=== PATIENT | male | born 1930 | race Asian ===

== ENCOUNTER 2019-07-17 11:15 | Inpatient (IN) | payer OTHER, MEDICAID ==
[~2019-07-17] VITALS: Ht 162.6 cm; Wt 59.4 kg
[2019-07-17 11:19] VITALS: BP_SYST 84
[2019-07-17] MEDS ORDERED: NACL 0.9% 1,000 ML IV ONE (11:21)
[2019-07-17] MEDS ORDERED: NS 1000 ML IV.SOLN IV ONE (11:30)
[2019-07-17] MEDS ORDERED: ONDANSETRON HCL 4 MG/2 ML VIAL IVP ONE (11:30)
[2019-07-17 11:55] LABS: BASOPHILS % (AUTO) 0.1 % (0.0-2.0); EOSINOPHILS % (AUTO) 0.1 % (0.0-4.0); HEMATOCRIT 40.6 % (36-54); HEMOGLOBIN 13.3 g/dL (14.0-18.0); LYMPHOCYTES # (AUTO) 0.6 K/uL (1.0-5.5); LYMPHOCYTES % (AUTO) 2.2 % (20.5-51.5); MEAN CORPUSCULAR HEMOGLOBIN 29 pg (27-31); MEAN CORPUSCULAR HGB CONC 33 % (32-36); MEAN CORPUSCULAR VOLUME 89 fL (79.0-98.0); MONOCYTES # (AUTO) 0.9 K/uL (0.0-1.0); MONOCYTES % (AUTO) 3.3 % (1.7-9.3); NEUTROPHILS # (AUTO) 24.8 K/uL (1.8-7.7); NEUTROPHILS % (AUTO) 94.3 % (40.0-70.0); PLATELET COUNT (AUTO) 126 K/uL (130-430); RED BLOOD CELL COUNT(AUTO) 4.55 MIL/uL (4.2-6.2); RED CELL DISTRIBUTION WIDTH 14.6 % (9.0-15.0); WHITE BLOOD COUNT (AUTO) 26.3 K/uL (4.8-10.8)
[2019-07-17 12:05] LABS: ANION GAP 8 (5-15); CALCIUM 7.9 mg/dL (8.4-11.0); CHLORIDE 107 mmol/L (98-107); CREATININE 1.47 mg/dL (0.55-1.30); GLUCOSE 146 mg/dL (70-99); POTASSIUM 3.3 mmol/L (3.5-5.1); SODIUM SERUM 142 mmol/L (136-145); UREA NITROGEN, BLOOD 30 mg/dL (8-21)
[2019-07-17 12:08] LABS: PROTHROMBIN TIME 10.5 SECS (9.5-12.5)
[2019-07-17 12:11] LABS: ALANINE AMINOTRANSFERASE 53 U/L (12-78); ALBUMIN 2.5 g/dL (3.4-4.8); ASPARTATE AMINOTRANSFERASE 69 U/L (10-37); LIPASE 33 U/L (73-393); TOTAL BILIRUBIN 0.5 mg/dL (0.0-1.0)
[2019-07-17] MEDS ORDERED: ASPIRIN 81 MG TAB.CHEW PO ONE (12:15)
[2019-07-17] MEDS ORDERED: ASPIRIN 81 MG TAB.CHEW ONE (12:32)
[2019-07-17 12:36] LABS: CKMB RELATIVE INDEX 0.5 (0.0-2.9); CREATINE KINASE MB 2.3 ng/mL (0-3.6)
[2019-07-17] MEDS ORDERED: cefTRIAXone 1 GM IVPB PREMIX 50 ML IV ONE (14:00)
[2019-07-17 14:34] LABS: BILIRUBIN,URINE NEGATIVE (NEGATIVE); BLOOD, URINE 2+ (NEGATIVE); CLARITY/URINE CLEAR (CLEAR); COLOR,URINE YELLOW (YELLOW); GLUCOSE,URINE NEGATIVE (NEGATIVE); KETONES,URINE NEGATIVE (NEGATIVE); LEUKOCYTE ESTERASE ,URINE NEGATIVE (NEGATIVE); NITRITE, URINE NEGATIVE (NEGATIVE); PROTEIN URINE NEGATIVE (NEGATIVE); UROBILINOGEN,URINE 0.2 (0.2-1.0)
[2019-07-17 14:57] LABS: BACTERIA,URINE RARE /HPF (None Seen); MUCUS,URINE 1+ /LPF (None Seen); WBC,URINE 0-3 /HPF (0-3)
[2019-07-17] MEDS ORDERED: NACL 0.9% 1,000 ML IV SCH (15:00)
[2019-07-17] MEDS ORDERED: LISI-209 PO (15:04)
[2019-07-17] MEDS ORDERED: MEMA5TAB PO (15:04)
[2019-07-17] MEDS ORDERED: METO25TA6 PO (15:04)
[2019-07-17] MEDS ORDERED: MULT-1117 PO (15:04)
[2019-07-17] MEDS ORDERED: ATOR40TA68 PO (15:04)
[2019-07-17] MEDS ORDERED: MIRT15TA2 PO (15:04)
[2019-07-17] MEDS ORDERED: ACET-2165 PO (15:04)
[2019-07-17] MEDS ORDERED: PRO40 PO (15:04)
[2019-07-17] MEDS ORDERED: RIVA15TA GT (15:04)
[2019-07-17] MEDS ORDERED: CHOL20004 PO (15:04)
[2019-07-17] MEDS ORDERED: DOCU-144 PO (15:04)
[2019-07-17 16:35] VITALS: BP_SYST 93
[2019-07-17] MEDS: PIPERACILLIN/TAZO 3.375 GM in NS 50 ML IV SCH (18:20)
[2019-07-17 20:00] VITALS: BP_SYST 95
[2019-07-17] MEDS: ATORVASTATIN 20 MG TABLET PO SCH (21:00)
[2019-07-17] MEDS: DOCUSATE SODIUM 100 MG CAPSULE PO SCH (21:00)
[2019-07-17 23:26] VITALS: BP_SYST 88
[2019-07-17] MEDS ORDERED: KCL 20 mEq in NS 1000 mL 1,000 ML IV ONE (23:58)
[2019-07-18] VITALS (7 sets, daily range): BP systolic 109–136
[2019-07-18] MEDS: KCL 20 mEq in NS 1000 mL 1,000 ML IV SCH ×4 (00:19→21:16)
[2019-07-18] MEDS: PIPERACILLIN/TAZO 3.375 GM in NS 50 ML IV SCH ×4 (00:20→23:56)
[2019-07-18 05:46] LABS: ANION GAP 8 (5-15); CALCIUM 7.1 mg/dL (8.4-11.0); CHLORIDE 112 mmol/L (98-107); CREATININE 1.08 mg/dL (0.55-1.30); GLUCOSE 82 mg/dL (70-99); POTASSIUM 4.1 mmol/L (3.5-5.1); SODIUM SERUM 144 mmol/L (136-145); UREA NITROGEN, BLOOD 31 mg/dL (8-21)
[2019-07-18 06:26] LABS: BASOPHILS % (AUTO) 0.1 % (0.0-2.0); EOSINOPHILS % (AUTO) 0.2 % (0.0-4.0); HEMATOCRIT 36.5 % (36-54); HEMOGLOBIN 11.8 g/dL (14.0-18.0); LYMPHOCYTES # (AUTO) 0.5 K/uL (1.0-5.5); LYMPHOCYTES % (AUTO) 2.4 % (20.5-51.5); MEAN CORPUSCULAR HEMOGLOBIN 29 pg (27-31); MEAN CORPUSCULAR HGB CONC 32 % (32-36); MEAN CORPUSCULAR VOLUME 90 fL (79.0-98.0); MONOCYTES # (AUTO) 0.7 K/uL (0.0-1.0); MONOCYTES % (AUTO) 3.4 % (1.7-9.3); NEUTROPHILS # (AUTO) 18.7 K/uL (1.8-7.7); NEUTROPHILS % (AUTO) 93.9 % (40.0-70.0); PLATELET COUNT (AUTO) 107 K/uL (130-430); RED BLOOD CELL COUNT(AUTO) 4.08 MIL/uL (4.2-6.2); RED CELL DISTRIBUTION WIDTH 14.3 % (9.0-15.0); WHITE BLOOD COUNT (AUTO) 19.9 K/uL (4.8-10.8)
[2019-07-18] MEDS: PANTOPRAZOLE SODIUM 40 MG TAB PO SCH (06:32)
[2019-07-18] MEDS: MULTIVITAMINS TAB 1 TABLET PO SCH (08:02)
[2019-07-18] MEDS: METOPROLOL TARTRATE 25 MG TABLET PO SCH ×2 (08:02→21:00)
[2019-07-18] MEDS: MEMANTINE HCL 5 MG TABLET PO SCH ×2 (08:02→21:00)
[2019-07-18] MEDS: LISINOPRIL 5 MG TABLET PO SCH (08:03)
[2019-07-18] MEDS ORDERED: ACETAMINOPHEN 325 MG TABLET PO SCH (10:00)
[2019-07-18] MEDS ORDERED: DIATR MEGLU/DIATRIZ SOD 30 ML SOLUTION PO ONE (12:06)
[2019-07-18] MEDS: DOCUSATE SODIUM 100 MG CAPSULE PO SCH (21:00)
[2019-07-18] MEDS: ATORVASTATIN 20 MG TABLET PO SCH (21:00)
[2019-07-19] MEDS: PIPERACILLIN/TAZO 3.375 GM in NS 50 ML IV SCH ×3 (06:18→23:44)
[2019-07-19] MEDS: PANTOPRAZOLE SODIUM 40 MG TAB PO SCH (06:18)
[2019-07-19] MEDS: KCL 20 mEq in NS 1000 mL 1,000 ML IV SCH ×2 (06:21→15:03)
[2019-07-19 06:30] LABS: ALANINE AMINOTRANSFERASE 37 U/L (12-78); ANION GAP 12 (5-15); ASPARTATE AMINOTRANSFERASE 50 U/L (10-37); CALCIUM 8.1 mg/dL (8.4-11.0); CHLORIDE 114 mmol/L (98-107); GLUCOSE 60 mg/dL (70-99); POTASSIUM 4.7 mmol/L (3.5-5.1); SODIUM SERUM 145 mmol/L (136-145); TOTAL BILIRUBIN 0.5 mg/dL (0.0-1.0); UREA NITROGEN, BLOOD 33 mg/dL (8-21)
[2019-07-19 06:48] LABS: BASOPHILS # (AUTO) 0.1 K/uL (0.0-0.2); BASOPHILS % (AUTO) 0.3 % (0.0-2.0); EOSINOPHILS # (AUTO) 0.3 K/uL (0.0-0.4); EOSINOPHILS % (AUTO) 1.4 % (0.0-4.0); HEMATOCRIT 40.8 % (36-54); HEMOGLOBIN 13.3 g/dL (14.0-18.0); LYMPHOCYTES # (AUTO) 1.1 K/uL (1.0-5.5); MEAN CORPUSCULAR HEMOGLOBIN 30 pg (27-31); MEAN CORPUSCULAR HGB CONC 33 % (32-36); MEAN CORPUSCULAR VOLUME 91 fL (79.0-98.0); MONOCYTES % (AUTO) 4.5 % (1.7-9.3); NEUTROPHILS # (AUTO) 19.5 K/uL (1.8-7.7); NEUTROPHILS % (AUTO) 88.8 % (40.0-70.0); PLATELET COUNT (AUTO) 123 K/uL (130-430); RED CELL DISTRIBUTION WIDTH 14.8 % (9.0-15.0)
[2019-07-19 08:10] VITALS: BP_SYST 136
[2019-07-19 12:34] VITALS: BP_SYST 134
[2019-07-19] MEDS: MULTIVITAMINS TAB 1 TABLET PO SCH (14:57)
[2019-07-19] MEDS: METOPROLOL TARTRATE 25 MG TABLET PO SCH ×2 (14:58→21:00)
[2019-07-19] MEDS: MEMANTINE HCL 5 MG TABLET PO SCH ×2 (14:58→21:00)
[2019-07-19] MEDS: LISINOPRIL 5 MG TABLET PO SCH (14:59)
[2019-07-19 16:12] VITALS: BP_SYST 130
[2019-07-19 19:58] VITALS: BP_SYST 144
[2019-07-19] MEDS: DOCUSATE SODIUM 100 MG CAPSULE PO SCH (21:00)
[2019-07-19] MEDS: ATORVASTATIN 20 MG TABLET PO SCH (21:00)
[2019-07-20 01:03] VITALS: BP_SYST 135
[2019-07-20] MEDS: KCL 20 mEq in NS 1000 mL 1,000 ML IV SCH ×3 (05:30→14:07)
[2019-07-20] MEDS: PANTOPRAZOLE SODIUM 40 MG TAB PO SCH (05:35)
[2019-07-20] MEDS: PIPERACILLIN/TAZO 3.375 GM in NS 50 ML IV SCH ×2 (06:03→14:06)
[2019-07-20 08:06] VITALS: BP_SYST 139
[2019-07-20 08:18] LABS: HEMATOCRIT 42.2 % (36-54); HEMOGLOBIN 13.8 g/dL (14.0-18.0); MEAN CORPUSCULAR HEMOGLOBIN 29 pg (27-31); MEAN CORPUSCULAR HGB CONC 33 % (32-36); PLATELET COUNT (AUTO) 136 K/uL (130-430); RED BLOOD CELL COUNT(AUTO) 4.73 MIL/uL (4.2-6.2); RED CELL DISTRIBUTION WIDTH 14.6 % (9.0-15.0); WHITE BLOOD COUNT (AUTO) 19.3 K/uL (4.8-10.8)
[2019-07-20] MEDS: METOPROLOL TARTRATE 25 MG TABLET PO SCH ×2 (08:18→23:00)
[2019-07-20] MEDS: MEMANTINE HCL 5 MG TABLET PO SCH ×2 (08:18→23:00)
[2019-07-20 08:47] LABS: MEAN CORPUSCULAR VOLUME 89 fL (79.0-98.0)
[2019-07-20] MEDS: LISINOPRIL 5 MG TABLET PO SCH (09:00)
[2019-07-20] MEDS: MULTIVITAMINS TAB 1 TABLET PO SCH (09:00)
[2019-07-20 09:17] LABS: ATYPICAL LYMPHOCYTES % 0 % (0-0); BAND % (MANUAL) 1 % (0-6); BASOPHILS % (MANUAL) 0 % (0-2); EOSINOPHILS % (MANUAL) 0 % (0-7); LYMPHOCYTES % (MANUAL) 5 % (20-46); MONOCYTES % (MANUAL) 4 % (0-11)
[2019-07-20 12:40] VITALS: BP_SYST 139
[2019-07-20 15:15] VITALS: BP_SYST 134
[2019-07-20 16:31] VITALS: BP_SYST 134
[2019-07-20] MEDS ORDERED: IOHEXOL 50 ML IV ONE (19:31)
[2019-07-20] MEDS ORDERED: BUPIVACAINE /PF 0.75% 10 ML VIAL INJ ONE (20:15)
[2019-07-20] MEDS ORDERED: NS IRRIG SOLN 1000 ML IR ONE (20:15)
[2019-07-20] MEDS ORDERED: NS 1000 ML IV.SOLN IV ONE (20:15)
[2019-07-20] MEDS ORDERED: WATER FOR IRRIGATION,STERILE 4,000 ML IRRIG.SOLN IR ONE (20:15)
[2019-07-20] MEDS ORDERED: fentaNYL CITRATE/PF 100 MCG/2 ML AMP IVP PRN ×2 (20:15)
[2019-07-20] MEDS ORDERED: ONDANSETRON HCL 4 MG/2 ML VIAL IVP PRN (20:15)
[2019-07-20] MEDS: ATORVASTATIN 20 MG TABLET PO SCH (23:00)
[2019-07-20] MEDS: DOCUSATE SODIUM 100 MG CAPSULE PO SCH (23:00)
[2019-07-20 23:40] VITALS: BP_SYST 106
[2019-07-21] MEDS: PIPERACILLIN/TAZO 3.375 GM in NS 50 ML IV SCH ×4 (02:08→23:49)
[2019-07-21] MEDS: PANTOPRAZOLE SODIUM 40 MG TAB PO SCH (05:52)
[2019-07-21 06:35] LABS: BASOPHILS % (AUTO) 0.1 % (0.0-2.0); HEMATOCRIT 45.6 % (36-54); HEMOGLOBIN 14.9 g/dL (14.0-18.0); LYMPHOCYTES # (AUTO) 0.7 K/uL (1.0-5.5); LYMPHOCYTES % (AUTO) 3.9 % (20.5-51.5); MEAN CORPUSCULAR HEMOGLOBIN 29 pg (27-31); MEAN CORPUSCULAR HGB CONC 33 % (32-36); MEAN CORPUSCULAR VOLUME 89 fL (79.0-98.0); MONOCYTES # (AUTO) 0.7 K/uL (0.0-1.0); MONOCYTES % (AUTO) 4.3 % (1.7-9.3); NEUTROPHILS # (AUTO) 15.6 K/uL (1.8-7.7); NEUTROPHILS % (AUTO) 91.7 % (40.0-70.0); PLATELET COUNT (AUTO) 152 K/uL (130-430); RED CELL DISTRIBUTION WIDTH 14.4 % (9.0-15.0)
[2019-07-21 07:38] LABS: ANION GAP 11 (5-15); CALCIUM 8.3 mg/dL (8.4-11.0); CHLORIDE 116 mmol/L (98-107); CREATININE 0.94 mg/dL (0.55-1.30); GLUCOSE 161 mg/dL (70-99); PHOSPHORUS 3.2 mg/dL (2.7-4.5); POTASSIUM 4.1 mmol/L (3.5-5.1); SODIUM SERUM 149 mmol/L (136-145); UREA NITROGEN, BLOOD 24 mg/dL (8-21)
[2019-07-21 08:02] VITALS: BP_SYST 126
[2019-07-21] MEDS: MULTIVITAMINS TAB 1 TABLET PO SCH (08:19)
[2019-07-21] MEDS: MEMANTINE HCL 5 MG TABLET PO SCH ×2 (08:19→21:27)
[2019-07-21] MEDS: METOPROLOL TARTRATE 25 MG TABLET PO SCH ×2 (08:19→21:26)
[2019-07-21] MEDS: D5/0.45 NS 1,000 ML IV SCH ×2 (10:15→11:52)
[2019-07-21] MEDS: LISINOPRIL 5 MG TABLET PO SCH (11:50)
[2019-07-21 12:07] VITALS: BP_SYST 138
[2019-07-21 17:13] VITALS: BP_SYST 135
[2019-07-21 19:50] VITALS: BP_SYST 128
[2019-07-21] MEDS: ATORVASTATIN 20 MG TABLET PO SCH (21:26)
[2019-07-21] MEDS: DOCUSATE SODIUM 100 MG CAPSULE PO SCH (21:26)
[2019-07-22 01:49] VITALS: BP_SYST 116
[2019-07-22] MEDS: PANTOPRAZOLE SODIUM 40 MG TAB PO SCH (06:02)
[2019-07-22] MEDS: D5/0.45 NS 1,000 ML IV SCH (06:02)
[2019-07-22] MEDS ORDERED: MEROPENEM 500 MG in NS 50 ML IV SCH (09:00)
[2019-07-22] MEDS: LISINOPRIL 5 MG TABLET PO SCH (09:00)
[2019-07-22 09:23] VITALS: BP_SYST 109
[2019-07-22] MEDS: MULTIVITAMINS TAB 1 TABLET PO SCH (09:26)
[2019-07-22] MEDS: MEMANTINE HCL 5 MG TABLET PO SCH (09:26)
[2019-07-22] MEDS: METOPROLOL TARTRATE 25 MG TABLET PO SCH (09:27)
[2019-07-22 12:00] VITALS: BP_SYST 113
[2019-07-22 16:00] VITALS: BP_SYST 112
[2019-07-22 17:49] VITALS: BP_SYST 96
== END 2019-07-22 20:30 | DRG 853 ==
LOC: SED 11:15 → STU 15:04
PROVIDERS: ADMIT Internal Medicine; ATTEND Internal Medicine
PROC: 0T768DZ Dilation of Right Ureter with Intraluminal Device, Via Natural or Artificial Opening Endoscopic (ICD-10-PCS; 2019-07-20)
PROC: BT1D1ZZ Fluoroscopy of Right Kidney, Ureter and Bladder using Low Osmolar Contrast (ICD-10-PCS; 2019-07-20)
PROC: 0TCB8ZZ Extirpation of Matter from Bladder, Via Natural or Artificial Opening Endoscopic (ICD-10-PCS; principal; 2019-07-20 15:00)
DX: A41.50 Gram-negative sepsis, unspecified (principal); R65.21 Severe sepsis with septic shock; N17.9 Acute kidney failure, unspecified; E87.2 Acidosis; N39.0 Urinary tract infection, site not specified; N20.1 Calculus of ureter; I24.8 Other forms of acute ischemic heart disease; F32.9 Major depressive disorder, single episode, unspecified; K21.9 Gastro-esophageal reflux disease without esophagitis; D64.9 Anemia, unspecified; E78.5 Hyperlipidemia, unspecified; I48.0 Paroxysmal atrial fibrillation; I25.10 Atherosclerotic heart disease of native coronary artery without angina pectoris; Z66 Do not resuscitate; N21.0 Calculus in bladder; E11.22 Type 2 diabetes mellitus with diabetic chronic kidney disease; I12.9 Hypertensive chronic kidney disease with stage 1 through stage 4 chronic kidney disease, or unspecified chronic kidney disease; N18.9 Chronic kidney disease, unspecified; B96.20 Unspecified Escherichia coli [E. coli] as the cause of diseases classified elsewhere; F03.90 Unspecified dementia, unspecified severity, without behavioral disturbance, psychotic disturbance, mood disturbance, and anxiety; I25.2 Old myocardial infarction; Z87.442 Personal history of urinary calculi; Z86.73 Personal history of transient ischemic attack (TIA), and cerebral infarction without residual deficits; Z79.01 Long term (current) use of anticoagulants; Z79.899 Other long term (current) drug therapy
CPT/HCPCS: 36415; 71045; 76000; 80048; 80053; 81000-TC; 82550-TC; 82553-TC; 83605; 83690-TC; 83735-TC; 84100-TC; 84484; 85007; 85025; 85027; 85610-TC; 85730-TC; 87040-TC; 87081; 87086; 87186-TC; 88300; 93005; 93306; 93970; 94760; 96361; 96365; 96375; 99285; C1758; C1769; C2625; G0378; J0696; J2185; J2405; J2543; J3480; J3490; J7030; Q9964; Q9967

== ENCOUNTER 2019-09-07 12:20 | Inpatient (IN) | payer OTHER, MEDICAID ==
[~2019-09-07] VITALS: Ht 160 cm; Wt 49.9 kg
[~2019-09-07 12:20] MED LIST: ACET-2165 PO; ATOR40TA68 PO; CHOL20004 PO; DOCU-144 PO; LISI-209 PO; MEMA5TAB PO; METO25TA6 PO; MIRT15TA2 PO; MULT-1117 PO; PRO40 PO; RIVA15TA GT
--- NOTE | 2019-09-07 12:43 | NUR ---
Patient to ER bed 1 to gown for evaluation. Side rails up.
--- NOTE | 2019-09-07 12:44 | NUR ---
Patient is awake, alert, and oriented x2. Mandarin speaking. Brought in via BLS from [facility] for gross hematuria. Patient denies pain at this time.
[2019-09-07 12:46] VITALS: BP_SYST 116
--- NOTE | 2019-09-07 12:50 | NUR ---
ER Dr. Benton at bedside examining patient.
[2019-09-07 13:40] LABS: BASOPHILS % (AUTO) 0.4 % (0.0-2.0); EOSINOPHILS # (AUTO) 0.2 K/uL (0.0-0.4); EOSINOPHILS % (AUTO) 2.7 % (0.0-4.0); HEMATOCRIT 38.9 % (36-54); HEMOGLOBIN 12.6 g/dL (14.0-18.0); LYMPHOCYTES # (AUTO) 1.1 K/uL (1.0-5.5); MEAN CORPUSCULAR HEMOGLOBIN 28 pg (27-31); MEAN CORPUSCULAR HGB CONC 32 % (32-36); MEAN CORPUSCULAR VOLUME 86 fL (79.0-98.0); MONOCYTES # (AUTO) 0.5 K/uL (0.0-1.0); MONOCYTES % (AUTO) 7.6 % (1.7-9.3); NEUTROPHILS # (AUTO) 4.2 K/uL (1.8-7.7); NEUTROPHILS % (AUTO) 70.3 % (40.0-70.0); PLATELET COUNT (AUTO) 214 K/uL (130-430); RED BLOOD CELL COUNT(AUTO) 4.51 MIL/uL (4.2-6.2); RED CELL DISTRIBUTION WIDTH 14.6 % (9.0-15.0)
[2019-09-07 13:54] LABS: CALCIUM 8.6 mg/dL (8.4-11.0); CHLORIDE 103 mmol/L (98-107); CREATININE 0.72 mg/dL (0.55-1.30); GLUCOSE 185 mg/dL (70-99); POTASSIUM 3.8 mmol/L (3.5-5.1); SODIUM SERUM 135 mmol/L (136-145); UREA NITROGEN, BLOOD 23 mg/dL (8-21)
[2019-09-07 13:59] LABS: ALANINE AMINOTRANSFERASE 15 U/L (12-78); ALBUMIN 2.6 g/dL (3.4-4.8); ASPARTATE AMINOTRANSFERASE 18 U/L (10-37); TOTAL BILIRUBIN 0.4 mg/dL (0.0-1.0)
[2019-09-07 14:01] LABS: ANION GAP < 3 (5-15)
[2019-09-07 15:10] LABS: BILIRUBIN,URINE 1+ (NEGATIVE); BLOOD, URINE 3+ (NEGATIVE); CLARITY/URINE CLOUDY (CLEAR); COLOR,URINE BROWN (YELLOW); GLUCOSE,URINE NEGATIVE (NEGATIVE); KETONES,URINE NEGATIVE (NEGATIVE); LEUKOCYTE ESTERASE ,URINE 2+ (NEGATIVE); NITRITE, URINE POSITIVE (NEGATIVE); PH,URINE 6.5 (5.0-8.0); PROTEIN URINE 2+ (NEGATIVE)
[2019-09-07 16:20] LABS: BACTERIA,URINE FEW /HPF (None Seen); MUCUS,URINE None Seen /LPF (None Seen); RBC,URINE >100 /HPF (0-3); URINE AMORPHOUS URATE 2+ /HPF (None Seen)
[2019-09-07] MEDS ORDERED: cefTRIAXone 1 GM in D5W 50 ML IV ONE (16:45)
--- NOTE | 2019-09-07 17:28 | NUR ---
Patient will be admitted to care of Dr. Escobedo. Admitted to medsurg unit. WILMA Mesa to assign room. Belongings list completed. Complete and up to date summary report printed. SBAR report to be given at bedside with opportunity for questions.
[2019-09-07] MEDS ORDERED: cefTRIAXone 1 GM VIAL ONE (17:32)
--- NOTE | 2019-09-07 17:59 | NUR ---
Medication reconciliation completed with information provided by [place]. Any prior medication reconciliation on file was reviewed and corrected.
--- NOTE | 2019-09-07 18:03 | NUR ---
Followed up with WILMA Mesa for room assignment. Patient to be assigned to 120A.
--- NOTE | 2019-09-07 18:13 | NUR ---
Transfer to 120A. EMT present. IV present no signs or symptoms of infiltration.
--- NOTE | 2019-09-07 18:15 | NUR ---
RECEIVED PATIENT FROM ER VIA GURNEY. TRANSFERRED TO BED . PATIENT WITH EYES OPEN NON VERBAL MANDARIN SPEAKING. RESP EVEN UNLABORED. F/C WITH GROSS HEMATURIA. VSS. BP 130/80 HR 98 TEMP 97.9. PATIENT ASSISTED IN BED X2 SIDE RAILS UP BED AT THE LOWEST POSITION. CALL LIGHT WITHIN REACH. NO S&S OF PAIN OR DISTRESS. REPORT ENDORSED TO ELLIS RN
[2019-09-07 20:00] VITALS: BP_SYST 149
--- NOTE | 2019-09-07 20:00 | NUR ---
recieved report @ start of shift, a/o/x1-2 with confusion,respirations even and unlabored,room air,,bedbound, turned and reposuitioned q 2hrs,doherty catheter draining dark coretta bloody urine,D51/2 NS infusing @ 50ml./hr in LAC 20G,Mandrin speaking only,, tolerating IVPB ABT'S with no adverse reactions noted, can be very unco-operative when approach for care, skin appears to be intact, difficult to asses pt refuses to turn on side to assess back side of body, will continue to monitor for any s/s of distress, Sr's up X's 2, call light within reach and bed in low position.
[2019-09-07] MEDS: D5/0.45 NS 1,000 ML IV SCH (21:00)
--- NOTE | 2019-09-08 | NUR ---
resting quietly in bed with eyes closed, easily aroused, will continue to monitor for any s/s of distress, gross hematuria present in doherty catheter tubing.
--- NOTE | 2019-09-08 01:49 | NUR ---
CONSULTATION PAGED REASON FOR CONSULTATION: Hematuria WAS CONSULT CALLED? Y PERSON WHO WAS NOTIFIED: Julia CONSULTING PHYSICIAN: Andrei Phillips ASSISTANT PORTFOLIO MANAGER PHONE NUMBER: [phone] REQUESTING PHYSICIAN: Dr. Escobedo
--- NOTE | 2019-09-08 01:50 | NUR ---
CONSULTATION PAGED REASON FOR CONSULTATION: UTI WAS CONSULT CALLED? Y PERSON WHO WAS NOTIFIED: Julia CONSULTING PHYSICIAN: Cloin Ross BLANKING PRESS OPERATOR PHONE NUMBER: [phone] REQUESTING PHYSICIAN: Dr. Escobedo Face Sheet was faxed to [phone]
[2019-09-08 03:51] VITALS: BP_SYST 135
[2019-09-08 04:00] VITALS: BP_SYST 124
--- NOTE | 2019-09-08 04:00 | NUR ---
no noted changes occurred during the rest iof shift, patient resting quietly in bed with eyes closed, IVF infusing LAC without difficulty,F/C continues to drain hematuria, will continue to monitor.
--- NOTE | 2019-09-08 06:15 | NUR ---
mrsa of nares specimen obtained and sent to lab.
[2019-09-08 07:06] LABS: BASOPHILS % (AUTO) 0.4 % (0.0-2.0); EOSINOPHILS # (AUTO) 0.2 K/uL (0.0-0.4); EOSINOPHILS % (AUTO) 2.8 % (0.0-4.0); HEMATOCRIT 37.8 % (36-54); HEMOGLOBIN 12.3 g/dL (14.0-18.0); LYMPHOCYTES # (AUTO) 1.7 K/uL (1.0-5.5); LYMPHOCYTES % (AUTO) 21.6 % (20.5-51.5); MEAN CORPUSCULAR HEMOGLOBIN 28 pg (27-31); MEAN CORPUSCULAR HGB CONC 33 % (32-36); MEAN CORPUSCULAR VOLUME 87 fL (79.0-98.0); MONOCYTES # (AUTO) 0.9 K/uL (0.0-1.0); MONOCYTES % (AUTO) 11.1 % (1.7-9.3); NEUTROPHILS % (AUTO) 64.1 % (40.0-70.0); PLATELET COUNT (AUTO) 213 K/uL (130-430); RED BLOOD CELL COUNT(AUTO) 4.37 MIL/uL (4.2-6.2); RED CELL DISTRIBUTION WIDTH 14.3 % (9.0-15.0); WHITE BLOOD COUNT (AUTO) 7.8 K/uL (4.8-10.8)
[2019-09-08 07:07] LABS: ANION GAP 5 (5-15); CALCIUM 8.6 mg/dL (8.4-11.0); CHLORIDE 105 mmol/L (98-107); CREATININE 0.64 mg/dL (0.55-1.30); GLUCOSE 117 mg/dL (70-99); POTASSIUM 4.3 mmol/L (3.5-5.1); SODIUM SERUM 140 mmol/L (136-145); UREA NITROGEN, BLOOD 19 mg/dL (8-21)
--- NOTE | 2019-09-08 07:35 | NUR ---
Opening note patient resting in bed, a/ox1- reoriented to place, time and event - patient speaks some Guyanese, patient refused vital signs to be taken, allowed for assessment, IV line is patent and infusing well, Mancia Catheter in place, draining coretta colored urine to gravity, educated the patient salesperson automobiles light system and plan of care, he nodded his head, call light placed within reach, bed in lowest position, three side rails up, bed alarm on, bed close to nursing station, fall, aspiration and isolation precautions in place.
--- NOTE | 2019-09-08 08:53 | NUR ---
Nutrition Update Los Scale 15 noted. Pt admitted for hematuria, UTI. Diet: N/A BMI: 22.7 kg/m2 RD to follow per nutrition care standards.
--- NOTE | 2019-09-08 09:19 | NUR ---
RN rounds/Renal Ultrasound patient tolerating Renal Ultrasound well at this time, continuing to monitor, call light within reach, bed in lowest position, three side rails up, bed alarm on, bed close to nursing station, fall, aspiration and isolation precautions in place.
--- NOTE | 2019-09-08 11:00 | NUR ---
Family at bedside patient's son George, discussed plan of care with George, he verbalized understanding.
--- NOTE | 2019-09-08 12:34 | NUR ---
Paged Dr. Escobedo for diet orders - according to the family the patient usually eats a pureed diet- order received, and kitchen called.
[2019-09-08 12:46] VITALS: BP_SYST 132
--- NOTE | 2019-09-08 13:08 | NUR ---
RN rounds patient resting in bed, family at bedside, informed the patient and family of new diet orders, patient denies pain, IV line is patent and infusing well, no other needs at this time, continuing to monitor, bed in lowest position, three side rails up, bed alarm on, bed close to nursing station, bed close to nursing station, fall and aspiration precautions in place.
[2019-09-08] MEDS: D5/0.45 NS 1,000 ML IV SCH (13:30)
--- NOTE | 2019-09-08 13:55 | NUR ---
RN rounds patient resting in bed, awake, patient had a BM, cleaned, turned, and repositioned him, skin is intact, no redness, no other needs at this time, IV line is patent and infusing well, continuing to monitor, bed in lowest position, three side rails up, bed alarm on, bed close to nursing station, call light placed within patient reach, fall, aspiration and isolation precautions in place.
--- NOTE | 2019-09-08 14:47 | NUR ---
Urology CRISTAL Mosley Ma at bedside at this time, flushed the Mancia Catheter with sterile irrigating solution, urine is more clear now, less coretta colored, patient tolerated well, continuing to monitor. Per Dimitri Mg- keep the Mancia Catheter upon discharge.
[2019-09-08 16:09] VITALS: BP_SYST 139
--- NOTE | 2019-09-08 16:15 | NUR ---
RN rounds Dr. Escobedo rounded and changed patient status to Telemetry, informed MD that medication reconciliation needs to be completed. Informed MD that patient was seen by urology, will follow up with any new orders.
--- NOTE | 2019-09-08 18:19 | NUR ---
Spoke with Dr. Escobedo informed MD that patient has uncontrolled A Fib and medication reconciliation is not complete - orders received.
[2019-09-08] MEDS ORDERED: ACETAMINOPHEN 325 MG TABLET PO PRN (18:30)
--- NOTE | 2019-09-08 18:34 | NUR ---
Closing note patient resting in bed, awake, no signs of pain, no signs of distress, all needs met, will endorse report to NOC shift nurse, bed in lowest position, three side rails up, bed alarm on, call light within reach, fall, aspiration and isolation precautions in place.
[2019-09-08 20:00] VITALS: BP_SYST 136
--- NOTE | 2019-09-08 20:00 | NUR ---
REPORT GIVEN @ START OF SHIFT, RESTING QUIETLY IN BED WATCHING TV, SON @ BEDSIDEALERT WITH CONFUSION,, BEDREST, SKIN INTACT,SPEAKS MANDERIN ONLY, WILL CONTINUE TO MONITOR FOR S/S OF DISTRESS
[2019-09-08] MEDS: DOCUSATE SODIUM 100 MG CAPSULE PO SCH (20:53)
[2019-09-08] MEDS: ATORVASTATIN 20 MG TABLET PO SCH (20:53)
[2019-09-08] MEDS: METOPROLOL TARTRATE 25 MG TABLET PO SCH (20:54)
[2019-09-08] MEDS: MEMANTINE HCL 5 MG TABLET PO SCH (20:55)
[2019-09-08] MEDS: MIRTAZAPINE 15 MG TABLET PO SCH (20:55)
--- NOTE | 2019-09-09 | NUR ---
KEPT CEAN AND DRY, HAD LARGE SOFT BROWN FORMED BM, PAPI TO ASSIST BY MOVING FROM KIM EO SIDE WITHOUT DIFFICULTY, RESTING QUIETLY IN BED WITH EYES COSED, EASILY AROUSED, DENIES PAIN.
--- NOTE | 2019-09-09 00:34 | NUR ---
CONSULT: CONSULT CALLED FOR DR. BURROWS I SPOKE WITH JUAQUIN HERRERA REASON FOR CONSULT: DEPRESSION REQUESTING CONSULT: DR. GILMAN NEGATIVE ASSEMBLER PHONE NUMBER: [phone] FACE SHEET IS ALREADY FAXED
[2019-09-09 01:47] VITALS: BP_SYST 179
--- NOTE | 2019-09-09 04:00 | NUR ---
NO NOTED CHANGES IN PRESENT CONDITION, CONTINUES TO REST QUIETY IN BED WITH EYES CLOSED, EASILY AROUSED, DENIES PAIN, WILL CONTINUE TO MONITOR CLOSELY FOR ANY S/S OF DISTRESS.
--- NOTE | 2019-09-09 04:17 | NUR ---
CONSULT: CONSULT CALLED FOR DR. MONIKA CALLAHAN I SPOKE WITH ERICK HERRERA REQUESTING CONSULT: DR. YANG REASON FOR CONSULT: UNCONTROLLED A-FIB STENOGRAPHIC COURT REPORTER PHONE NUMBER: [phone]
[2019-09-09 06:20] LABS: ALANINE AMINOTRANSFERASE 13 U/L (12-78); ALBUMIN 2.4 g/dL (3.4-4.8); AMYLASE 64 U/L (0-100); ANION GAP 5 (5-15); ASPARTATE AMINOTRANSFERASE 14 U/L (10-37); CALCIUM 8.6 mg/dL (8.4-11.0); CHLORIDE 105 mmol/L (98-107); CREATININE 0.57 mg/dL (0.55-1.30); GLUCOSE 119 mg/dL (70-99); LIPASE 86 U/L (73-393); PHOSPHORUS 2.6 mg/dL (2.7-4.5); POTASSIUM 3.7 mmol/L (3.5-5.1); SODIUM SERUM 135 mmol/L (136-145); TOTAL BILIRUBIN 0.5 mg/dL (0.0-1.0); UREA NITROGEN, BLOOD 16 mg/dL (8-21)
[2019-09-09 06:24] LABS: PROTHROMBIN TIME 10.4 SECS (9.5-12.5)
[2019-09-09 06:41] LABS: BASOPHILS % (AUTO) 0.6 % (0.0-2.0); EOSINOPHILS # (AUTO) 0.2 K/uL (0.0-0.4); EOSINOPHILS % (AUTO) 2.1 % (0.0-4.0); HEMATOCRIT 37.3 % (36-54); HEMOGLOBIN 12.4 g/dL (14.0-18.0); LYMPHOCYTES # (AUTO) 1.4 K/uL (1.0-5.5); LYMPHOCYTES % (AUTO) 19.4 % (20.5-51.5); MEAN CORPUSCULAR HEMOGLOBIN 28 pg (27-31); MEAN CORPUSCULAR HGB CONC 33 % (32-36); MEAN CORPUSCULAR VOLUME 85 fL (79.0-98.0); MONOCYTES # (AUTO) 0.7 K/uL (0.0-1.0); NEUTROPHILS % (AUTO) 68.9 % (40.0-70.0); PLATELET COUNT (AUTO) 222 K/uL (130-430); RED BLOOD CELL COUNT(AUTO) 4.41 MIL/uL (4.2-6.2); RED CELL DISTRIBUTION WIDTH 14.3 % (9.0-15.0); WHITE BLOOD COUNT (AUTO) 7.3 K/uL (4.8-10.8)
--- NOTE | 2019-09-09 07:48 | NUR ---
Initial Notes- In bed awake, speak chines. no acute distress noted. IVF infusing well. Mancia catheter draining pinkish urine, no clot noted at this time. Safety precaution observed. Bed alarm on. Will monitor.
[2019-09-09 08:00] VITALS: BP_SYST 138
[2019-09-09] MEDS: MULTIVITAMINS TAB 1 TABLET PO SCH (09:02)
[2019-09-09] MEDS: CHOLECALCIFEROL (VITAMIN D3) 2,000 UNIT TABLET PO SCH (09:02)
[2019-09-09] MEDS: PANTOPRAZOLE SODIUM 40 MG TAB PO SCH (09:02)
[2019-09-09] MEDS: MEMANTINE HCL 5 MG TABLET PO SCH ×2 (09:02→20:50)
[2019-09-09] MEDS: METOPROLOL TARTRATE 25 MG TABLET PO SCH ×2 (09:03→20:50)
[2019-09-09] MEDS: LISINOPRIL 5 MG TABLET PO SCH (09:04)
[2019-09-09] MEDS: D5/0.45 NS 1,000 ML IV SCH ×2 (09:30→17:14)
--- NOTE | 2019-09-09 09:30 | NUR ---
Pt eat 50% of his breakfst at this time and his ensure. 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 Pt take all his meds.
[2019-09-09 11:33] LABS: FREE T4 (FREE THYROXINE) 1.1 ng/dl (0.8-1.5); THYROID STIMULATING HORMONE 2.21 uIu/mL (0.36-3.74)
[2019-09-09 12:00] VITALS: BP_SYST 102
--- NOTE | 2019-09-09 12:04 | NUR ---
Notes- Resting, family at bedside. Seen by Dr. Escobedo at bedside. IVF infusing well. Repositioned. No pain.
[2019-09-09 16:00] VITALS: BP_SYST 99
--- NOTE | 2019-09-09 16:00 | NUR ---
Notes- Resting in bed, No acute distress noted. Repositioned. family at bedside
--- NOTE | 2019-09-09 18:44 | NUR ---
Notes- In bed, awake. Ivf infusing well. doherty catheter draining pinkish colored urine. IVF infusing well. No acute distress noted. Will endorse
[2019-09-09 20:00] VITALS: BP_SYST 117
--- NOTE | 2019-09-09 20:00 | NUR ---
RECIEVED REPORT @ START OF SHIFT, ALERT WITH CONFUSION, MANDRIN SPEAKING ONLY RESPIRATIONS EVEN AND UNLABORED, ROOM AIR,F/F DRAINING BRIGHT ORANGE URINE,NOTED PINKISH COLORED URINE IN TUBING,DENIES PAIN,S/L PATENT AND INTACT TO LEFT AC, WILL C, CONTACT ISOLATION MAINTAINED DUE TO HISTORY OF ESBL IN URINE WILL CONTINUE TO MONITOR FOR ANY S/S OF DISTRESS.SR'S UP X'S 3, CALL LIGHT WITHIN REACH AND BED IN LOW POSITION.
[2019-09-09] MEDS: DOCUSATE SODIUM 100 MG CAPSULE PO SCH (20:49)
[2019-09-09] MEDS: MIRTAZAPINE 15 MG TABLET PO SCH (20:50)
[2019-09-09] MEDS: ATORVASTATIN 20 MG TABLET PO SCH (20:50)
--- NOTE | 2019-09-10 | NUR ---
CONTINUES TO REST QUIETLY IN BED WITH EYES CLOSED, EASILY AROUSED, DENIES PAIN, S/L PATENT AND INTACT TO LAC
[2019-09-10 00:31] VITALS: BP_SYST 123
--- NOTE | 2019-09-10 04:00 | NUR ---
CONTINUES TO REST QUIETLY IN BED WITH EYES CLOSED, EASILY AROUSED, A-FIB ON TELE MONITOR, F/C CONTINUES TO DRAING BINTA COLORED URINE, MANDRIN SPEAKING ONLY WITH SOME UNDERSTANDING OF DANISH LANGUAGE, WILL CONTINUE TO MONITOR CLOSELY FOR ANY S/S OF DISTRESS. CONTACT ISOLATION CONTINUED FOR HX. OF ESBL IN URINE
[2019-09-10 08:00] VITALS: BP_SYST 122
--- NOTE | 2019-09-10 08:00 | NUR ---
ASSUMPTION OF CARE: RECEIVED PT A/A/O, X1-2, ANSWERS TO NAME, IS COOPERATIVE, NO S/S OF DISTRESS, DX:RISK FOR FLUID VOLUME DEFICIT, R/T HEMATURIA/UTI, PT HAS BAL IN PLACE WITH PINK COLORED URINE OUTPUT, NO SIGN OF TRAUMA, NO INDICATION OF PAIN, IV SITE INTACT, PATENT, NO REDNESS OR SWELLING, POSITIONED FOR COMFORT, VSS, BREATHING EASY, SATURATING 97% ORA, TOLERATING WELL, REORIENTED TO UNIT, CALL LIGHT PLACED WITHIN REACH, WILL CONT' TO MONITOR AND ASSESS.
--- NOTE | 2019-09-10 09:45 | NUR ---
COMPONENT OVERHAUL OPERATOR: MORNING MEDS GIVEN, PER ORDERED BY Hubert, TOLERATED WELL, WILL CONT' TO MONITOR AND ASSESS.
[2019-09-10] MEDS: MULTIVITAMINS TAB 1 TABLET PO SCH (10:33)
[2019-09-10] MEDS: MEMANTINE HCL 5 MG TABLET PO SCH ×3 (10:34→21:00)
[2019-09-10] MEDS: PANTOPRAZOLE SODIUM 40 MG TAB PO SCH (10:34)
[2019-09-10] MEDS: METOPROLOL TARTRATE 25 MG TABLET PO SCH ×3 (10:34→21:00)
[2019-09-10] MEDS: LISINOPRIL 5 MG TABLET PO SCH (10:35)
[2019-09-10] MEDS: CHOLECALCIFEROL (VITAMIN D3) 2,000 UNIT TABLET PO SCH (10:35)
[2019-09-10 11:32] VITALS: BP_SYST 116
--- NOTE | 2019-09-10 12:00 | NUR ---
NURSES NOTES: PT REMAINS STABLE, IS AWAKE, ALERT, X1-2, DAUGHTER AT BEDSIDE TO ASSIST WITH FEEDING LUNCH MEAL, PT TOLERATING WELL, VSS, NO DISTRESS NOTED, CALL LIGHT PLACED WITHIN REACH, WILL CONT' TO MONITOR AND ASSESS.
--- NOTE | 2019-09-10 14:00 | NUR ---
NURSES NOTES: PT ASLEEP, EASILY AROUSED VIA VERBAL/TACTILE STIMULI, NO SIGNIFICANT CHANGES NOTED, ORIENTED TO CALL LIGHT, ROOM CLOSE TO NURSES STATION, NEEDS MET, WILL CONT' WITH POC.
--- NOTE | 2019-09-10 14:49 | NUR ---
Discharge Planning: DCP faxed referral to [facility] (f [phone] p [phone]) DCP to follow up. Addendum: 09/10/19 at 1655 by Isaura GARCIA DCP followed up with [facility] (f [phone] p [phone]) spoke with Aneta pt will go to room 24A, if patient discharges on please weekend please call facility ask for nurse station 1.
[2019-09-10 16:27] VITALS: BP_SYST 137
--- NOTE | 2019-09-10 18:27 | NUR ---
ASSUMPTION OF CARE: RECEIVED PT A/A/O, X1-2, ANSWERS TO NAME, IS COOPERATIVE, NO S/S OF DISTRESS, DX:RISK FOR FLUID VOLUME DEFICIT, R/T HEMATURIA/UTI, PT HAS BAL IN PLACE WITH PINK COLORED URINE OUTPUT, NO SIGN OF TRAUMA, NO INDICATION OF PAIN, IV SITE INTACT, PATENT, NO REDNESS OR SWELLING, POSITIONED FOR COMFORT, VSS, BREATHING EASY, SATURATING 97% ORA, TOLERATING WELL, REORIENTED TO UNIT, CALL LIGHT PLACED WITHIN REACH, WILL CONT' TO MONITOR AND ASSESS. Addendum: 09/10/19 at 1855 by Olamide Vincent RN WRONG TIME
--- NOTE | 2019-09-10 18:30 | NUR ---
END OF SHIFT: PT RESTING IN POSITION OF COMFORT, NO CHANGES NOTED AT THIS TIME, WILL CONT' TO MONITOR, WILL ENDORSE TO REPAIR MILLER NURSE.
--- NOTE | 2019-09-10 19:47 | NUR ---
Initial note: Received report from antoine RN. Patient is awake in bed, no acute distress. Alert and oriented to name only. IV fluids infusing well, no infiltration at site. Bed locked in lowest position, side rails raised x3, bed alarm on. Call light with patient. Will continue with plan of care.
[2019-09-10 20:29] VITALS: BP_SYST 126
[2019-09-10] MEDS: DOCUSATE SODIUM 100 MG CAPSULE PO SCH ×2 (20:38→21:00)
[2019-09-10] MEDS: MIRTAZAPINE 15 MG TABLET PO SCH ×2 (20:38→21:00)
[2019-09-10] MEDS: ATORVASTATIN 20 MG TABLET PO SCH ×2 (20:39→21:00)
[2019-09-10] MEDS: D5/0.45 NS 1,000 ML IV SCH (20:41)
--- NOTE | 2019-09-10 22:29 | NUR ---
Medications refused: Attempted to administer due medications to patient, but patient continuously pushed RN's hand away. Patient is alert, oriented to name only. Vital signs WNL. Safety and fall precautions in place. Will continue monitoring.
[2019-09-11 01:31] VITALS: BP_SYST 105
--- NOTE | 2019-09-11 01:49 | NUR ---
Rounds: Patient is resting in bed, no acute distress. Tolerating room air. IV fluids infusing well. Safety and fall precautions in place. Will continue to monitor.
--- NOTE | 2019-09-11 03:46 | NUR ---
IV RE-INSERTION: IV site found dislodged. Restarted on right AC, gauge 22. Successful after 1 attempts. Resumed current IVF as ordered. Will observe for any signs of infiltration.
--- NOTE | 2019-09-11 06:36 | NUR ---
Closing note: Patient is sleeping in bed, no acute distress. Tolerating room air. IV site patent and benign. All needs met. Safety, fall precautions in place. Will endorse care to dayshift RN.
--- NOTE | 2019-09-11 07:30 | NUR ---
RECEIVED PATIENT ALERT AWAKE 1-2. KNOWS HIS NAME. LUNGS BILATERAL DIMINISHED AT THE BASES. ABDOMEN SOFT AND NON DISTENDED. HAS BAL CATHETER DARK PINK COLORED DRAINING WELL. HAS IV ACCESS ON THE RT AC #22. D5 1/2 NS AT 50CC/HR INFUSING ON WELL. SKIN INTACT. PATIENT FEEDER. WILL CONTINUE TO MONITOR PATIENTS STATUS.
[2019-09-11 08:14] VITALS: BP_SYST 100
[2019-09-11] MEDS: METOPROLOL TARTRATE 25 MG TABLET PO SCH ×2 (09:00→19:58)
[2019-09-11] MEDS: CHOLECALCIFEROL (VITAMIN D3) 2,000 UNIT TABLET PO SCH (09:26)
[2019-09-11] MEDS: MEMANTINE HCL 5 MG TABLET PO SCH ×2 (09:27→19:57)
[2019-09-11] MEDS: PANTOPRAZOLE SODIUM 40 MG TAB PO SCH (09:27)
[2019-09-11] MEDS: MULTIVITAMINS TAB 1 TABLET PO SCH (09:27)
[2019-09-11] MEDS: LISINOPRIL 5 MG TABLET PO SCH (09:28)
--- NOTE | 2019-09-11 09:30 | NUR ---
HANGED NEW IV FLUIDS.
--- NOTE | 2019-09-11 10:00 | NUR ---
MEDS DUE GIVEN.
--- NOTE | 2019-09-11 12:00 | NUR ---
REPOSITIONED TO SIDES. MADE COMFORTABLE. HOB ELEVATED.
[2019-09-11 12:12] VITALS: BP_SYST 129
--- NOTE | 2019-09-11 15:30 | NUR ---
DR GILMAN CAME AND EVALUATE THE PATIENT. ORDERED CBC AND BMP IN AM.
[2019-09-11 16:10] VITALS: BP_SYST 118
--- NOTE | 2019-09-11 16:53 | NUR ---
RESTING AT THIS TIME. NO FAMILY AT THE BEDSIDE. BOTH EYES CLOSED. NO PAIN NOR SOB NOTED.
--- NOTE | 2019-09-11 18:00 | NUR ---
iv antibiotic levaquin given at this time.
--- NOTE | 2019-09-11 18:30 | NUR ---
patient moved from 120-A to 120-B
--- NOTE | 2019-09-11 19:18 | NUR ---
endorsed to incoming nurse Linnea DILLON
[2019-09-11] MEDS: MIRTAZAPINE 15 MG TABLET PO SCH (19:57)
[2019-09-11] MEDS: DOCUSATE SODIUM 100 MG CAPSULE PO SCH (19:58)
[2019-09-11] MEDS: ATORVASTATIN 20 MG TABLET PO SCH (19:58)
[2019-09-11] MEDS: D5/0.45 NS 1,000 ML IV SCH (19:59)
[2019-09-11 20:00] VITALS: BP_SYST 139
--- NOTE | 2019-09-11 20:37 | NUR ---
Patient heart rate elevated. Patient refused PO evening medications. Call placed to Dr. Saleem. Awaiting return call. Will continue to monitor.
[2019-09-11] MEDS ORDERED: DILTIAZEM HCL 25 MG/5 ML VIAL IVP PRN (20:45)
[2019-09-11 23:31] VITALS: BP_SYST 120
--- NOTE | 2019-09-12 06:34 | NUR ---
Patient turned repositioned q2. No acute distress noted. Current assessment unchanged. Will continue to monitor.
[2019-09-12 07:13] LABS: BASOPHILS % (AUTO) 0.5 % (0.0-2.0); EOSINOPHILS # (AUTO) 0.1 K/uL (0.0-0.4); EOSINOPHILS % (AUTO) 1.5 % (0.0-4.0); HEMATOCRIT 35.2 % (36-54); HEMOGLOBIN 11.7 g/dL (14.0-18.0); LYMPHOCYTES # (AUTO) 1.5 K/uL (1.0-5.5); LYMPHOCYTES % (AUTO) 17.1 % (20.5-51.5); MEAN CORPUSCULAR HEMOGLOBIN 28 pg (27-31); MEAN CORPUSCULAR HGB CONC 33 % (32-36); MEAN CORPUSCULAR VOLUME 85 fL (79.0-98.0); MONOCYTES # (AUTO) 0.6 K/uL (0.0-1.0); MONOCYTES % (AUTO) 6.3 % (1.7-9.3); NEUTROPHILS # (AUTO) 6.8 K/uL (1.8-7.7); NEUTROPHILS % (AUTO) 74.6 % (40.0-70.0); PLATELET COUNT (AUTO) 226 K/uL (130-430); RED BLOOD CELL COUNT(AUTO) 4.13 MIL/uL (4.2-6.2); RED CELL DISTRIBUTION WIDTH 14.7 % (9.0-15.0); WHITE BLOOD COUNT (AUTO) 9.1 K/uL (4.8-10.8)
[2019-09-12 07:30] LABS: ANION GAP 3 (5-15); CALCIUM 8.6 mg/dL (8.4-11.0); CHLORIDE 105 mmol/L (98-107); GLUCOSE 135 mg/dL (70-99); POTASSIUM 3.8 mmol/L (3.5-5.1); SODIUM SERUM 135 mmol/L (136-145); UREA NITROGEN, BLOOD 17 mg/dL (8-21)
--- NOTE | 2019-09-12 07:30 | NUR ---
received patient alert awake x 2 but confused. lungs bilaterally diminished at the bases. abdomen soft and non distended. has iv access on the right forearm #22 with D5 1/2NS at 50cc hr infusing on well. has doherty catheter in placed draining well. will continue to monitor patients status.
[2019-09-12 07:31] LABS: CREATININE 0.72 mg/dL (0.55-1.30)
--- NOTE | 2019-09-12 08:00 | NUR ---
eating breakfast good. hob elevated. continue to monitor patient status.
[2019-09-12 09:08] VITALS: BP_SYST 121
[2019-09-12] MEDS: MULTIVITAMINS TAB 1 TABLET PO SCH (09:44)
[2019-09-12] MEDS: METOPROLOL TARTRATE 25 MG TABLET PO SCH ×2 (09:45→21:01)
[2019-09-12] MEDS: MEMANTINE HCL 5 MG TABLET PO SCH ×2 (09:45→21:01)
[2019-09-12] MEDS: LISINOPRIL 5 MG TABLET PO SCH (09:46)
[2019-09-12] MEDS: CHOLECALCIFEROL (VITAMIN D3) 2,000 UNIT TABLET PO SCH (09:46)
[2019-09-12] MEDS: PANTOPRAZOLE SODIUM 40 MG TAB PO SCH (09:46)
--- NOTE | 2019-09-12 10:00 | NUR ---
due medication given. crushing medication give it with apple sauce.
--- NOTE | 2019-09-12 12:00 | NUR ---
able to eat good. assists on feeding the patient. hob elevated.
[2019-09-12 12:57] VITALS: BP_SYST 121
--- NOTE | 2019-09-12 14:27 | NUR ---
turn to sides. patient sleeping both eyes closed. made comfortable.
--- NOTE | 2019-09-12 16:00 | NUR ---
turn to sides. hob elevated. made comfortable.
[2019-09-12 17:02] VITALS: BP_SYST 130
[2019-09-12] MEDS: D5/0.45 NS 1,000 ML IV SCH (17:24)
--- NOTE | 2019-09-12 18:29 | NUR ---
closing: patient had eaten dinner. still with same iv fluids infusing on well. all needs are met. no complained made so far. still with doherty catheter in placed and draining on well. endorsed to incoming nurse.
[2019-09-12 20:00] VITALS: BP_SYST 130
[2019-09-12] MEDS: ATORVASTATIN 20 MG TABLET PO SCH (21:00)
[2019-09-12] MEDS: DOCUSATE SODIUM 100 MG CAPSULE PO SCH (21:01)
[2019-09-12] MEDS: MIRTAZAPINE 15 MG TABLET PO SCH (21:01)
--- NOTE | 2019-09-12 21:32 | NUR ---
PATIENT IN BED. NO ACUTE DISTRESS NOTED. TURNED REPOSITIONED Q2. WILL CONTINUE TO MONITOR.
[2019-09-13] MEDS: METOPROLOL TARTRATE 25 MG TABLET PO SCH ×3 (09:00→20:42)
[2019-09-13] MEDS: LISINOPRIL 5 MG TABLET PO SCH (10:47)
[2019-09-13] MEDS: MEMANTINE HCL 5 MG TABLET PO SCH ×3 (10:47→21:00)
[2019-09-13] MEDS: MULTIVITAMINS TAB 1 TABLET PO SCH (10:47)
[2019-09-13] MEDS: PANTOPRAZOLE SODIUM 40 MG TAB PO SCH (10:47)
[2019-09-13] MEDS: CHOLECALCIFEROL (VITAMIN D3) 2,000 UNIT TABLET PO SCH (10:47)
[2019-09-13 12:00] VITALS: BP_SYST 135
[2019-09-13] MEDS: D5/0.45 NS 1,000 ML IV SCH (13:30)
--- NOTE | 2019-09-13 13:56 | NUR ---
Dietitian Recommendations *Recommend: Pureed CCHO diet w/ Glucerna TID. ONS will provide: 660 kcal and 30 gm protein daily. *Encourage pt to increase PO intake. Please see nutritional assessment for details. ELOISA, RD
[2019-09-13 16:20] VITALS: BP_SYST 114
--- NOTE | 2019-09-13 19:30 | NUR ---
OPENING NOTES Pt and endorsement received from day shift nurse. Pt is awake, alert and lying in bed while eating dinner. Pt on IVF with D5,0.45NS at 50ml/hr and infusing well on right forearm G22. Pt on doherty catheter with coretta urine and blood tinged noted in the bag, and hanged below bladder level. No complains of pain at this time. No signs of acute distress or SOB noted. Encouraged to use call light when needed. Safety precautions in place with 3 side rails up, wheels locked, bed alarm on and in lowest level. Call light with pt. Will continue to monitor.
[2019-09-13 20:31] VITALS: BP_SYST 126
[2019-09-13] MEDS: DOCUSATE SODIUM 100 MG CAPSULE PO SCH ×2 (20:32→20:41)
[2019-09-13] MEDS: ATORVASTATIN 20 MG TABLET PO SCH ×2 (20:32→20:42)
[2019-09-13] MEDS: MIRTAZAPINE 15 MG TABLET PO SCH ×2 (20:33→20:42)
--- NOTE | 2019-09-13 20:42 | NUR ---
MED PASS Pt refused all oral meds. Educated pt on importance of all medicines but pt said "no" and does not open his mouth. Unable to return to xis since all meds were crushed. Discarded all crushed meds to Rx destroyer. Will continue to monitor.
[2019-09-14 00:07] VITALS: BP_SYST 129
--- NOTE | 2019-09-14 02:20 | NUR ---
ROUNDS Pt is resting in bed with both eyes closed, with visible chest rise and fall with non-labored breathing noted. No signs of acute distress or SOB noted. IVF infusing well. No needs at this time. Safety precautions in place and call light with pt. Will continue to monitor.
--- NOTE | 2019-09-14 04:16 | NUR ---
ROUNDS Pt is resting in bed with both eyes closed, with visible chest rise and fall with non-labored breathing noted. No complains of pain and no signs of acute distress noted. IVF infusing well. Safety precautions in place and call light with pt. Will continue to monitor. .
--- NOTE | 2019-09-14 06:19 | NUR ---
CLOSING NOTES Pt is resting in bed with both eyes closed, with visible chest rise and fall with non-labored breathing noted. IVF infusing well. No moaning or grimacing noted. No signs of acute distress or SOB noted. Kept doherty bag hanged below bladder level. All needs attended throughout the shift. Safety precautions maintained with 3 side rails up, wheels locked, bed alarm on and in lowest level. Call light with pt. Will endorse to day shift nurse.
--- NOTE | 2019-09-14 07:30 | NUR ---
OPENING NOTES: RECEIVED PATIENT FROM FORM SETTER STEEL FORMS NURSE. PATIENT IS ASLEEP LAYING DOWN IN BED. PATIENT IS TOLERATING OXYGEN AT ROOM AIR WITH NO SIGNS OF DISTRESS OR SHORTNESS OF BREATH NOTED. IV SITE IS PATENT WITH NO SIGNS OF INFILTRATION NOTED. BAL CATHETER INTACT AND DRAINING BY GRAVITY. PATIENT IN STABLE CONDITION. SAFETY, FALL, AND ASPIRATION PRECAUTIONS ARE IN PLACE. BED LOCKED IN LOWEST POSITION WITH CALL LIGHT IN REACH. WILL CONTINUE TO MONITOR PATIENT FOR ANY CHANGES.
[2019-09-14 08:00] VITALS: BP_SYST 128
[2019-09-14] MEDS: METOPROLOL TARTRATE 25 MG TABLET PO SCH ×3 (09:00→21:00)
[2019-09-14] MEDS: PANTOPRAZOLE SODIUM 40 MG TAB PO SCH ×2 (09:00→09:27)
[2019-09-14] MEDS: CHOLECALCIFEROL (VITAMIN D3) 2,000 UNIT TABLET PO SCH ×2 (09:00→09:27)
[2019-09-14] MEDS: LISINOPRIL 5 MG TABLET PO SCH ×2 (09:00→09:28)
[2019-09-14] MEDS: MULTIVITAMINS TAB 1 TABLET PO SCH ×2 (09:00→09:27)
[2019-09-14] MEDS: MEMANTINE HCL 5 MG TABLET PO SCH ×3 (09:00→21:00)
[2019-09-14] MEDS: D5/0.45 NS 1,000 ML IV SCH (09:27)
--- NOTE | 2019-09-14 09:40 | NUR ---
MEDICATIONS: PATIENT REFUSED ALL MEDICATIONS. PATIENT WAS EDUCATED ON REFUSAL. WILL CONTINUE TO ATTEMPT TO GIVE FUTURE MEDICATIONS.
--- NOTE | 2019-09-14 10:10 | NUR ---
RN ROUNDS: PATIENT IS ASLEEP LAYING DOWN IN BED. NO SIGNS OF DISTRESS OR SHORTNESS OF BREATH NOTED. PATIENT IN STABLE CONDITION. WILL CONTINUE TO MONITOR PATIENT FOR ANY CHANGES.
[2019-09-14 12:00] VITALS: BP_SYST 122
--- NOTE | 2019-09-14 12:10 | NUR ---
RN ROUNDS: PATIENT IS AWAKE AND ALERT x1 LAYING DOWN IN BED WATCHING TELEVISION. PATIENT DENIES ANY PAIN AT THE MOMENT. NO SIGNS OF DISTRESS OR SHORTNESS OF BREATH NOTED. PATIENT IN STABLE CONDITION. WILL CONTINUE TO MONITOR PATIENT FOR ANY CHANGES.
--- NOTE | 2019-09-14 12:16 | NUR ---
PAGED: PAGED MONIKA REMY TO R[facility]EW [facility]. AWAITING CALL BACK.
[2019-09-14 16:02] VITALS: BP_SYST 107
--- NOTE | 2019-09-14 16:20 | NUR ---
CALLED: SPOKE WITH DR. GILMAN REGARDING DISCHARGE. DR. GILMAN STATES HE WANTS UROLOGIST TO SEE HIM BEFORE HE GETS DISCHARGED. WILL PAGE DR. LEONE.
--- NOTE | 2019-09-14 16:38 | NUR ---
PAGED: DR. LEONE WAS PAGED. AWAITING CALL BACK.
--- NOTE | 2019-09-14 18:46 | NUR ---
CLOSING NOTES: PATIENT IS AWAKE AND ALERT x1 LAYING DOWN IN BED. PATIENT IS TOLERATING OXYGEN AT ROOM AIR WITH NO SIGNS OF DISTRESS OR SHORTNESS OF BREATH NOTED. IV SITE IS PATENT WITH NO SIGNS OF INFILTRATION NOTED. BAL CATHETER INTACT AND DRAINING BY GRAVITY. PATIENT IN STABLE CONDITION. SAFETY, FALL, AND ASPIRATION PRECAUTIONS REMAINED IN PLACE THROUGHOUT THE SHIFT. BED LOCKED IN LOWEST POSITION WITH CALL LIGHT IN REACH. WILL ENDORSE PATIENT CARE TO ONCOMING ROTATING EQUIPMENT SPECIALIST NURSE.
[2019-09-14 20:05] VITALS: BP_SYST 109
--- NOTE | 2019-09-14 20:05 | NUR ---
Opening notes Pt awake, refused dinner. No s/s distress noted. VSS. IVF infusing at ordered rate R. AC 22G clear and patent. Call light within reach. To monitor.
--- NOTE | 2019-09-14 20:30 | NUR ---
Rounds Pt refused to eat dinner and take meds, shakes his head no. Safety maintained. To monitor.
[2019-09-14] MEDS: ATORVASTATIN 20 MG TABLET PO SCH (21:00)
[2019-09-14] MEDS: DOCUSATE SODIUM 100 MG CAPSULE PO SCH (21:00)
[2019-09-14] MEDS: MIRTAZAPINE 15 MG TABLET PO SCH (21:00)
--- NOTE | 2019-09-15 00:25 | NUR ---
Rounds Pt asleep, no s/s distress noted. VSS, afebrile. To monitor.
[2019-09-15 01:00] VITALS: BP_SYST 91
--- NOTE | 2019-09-15 06:05 | NUR ---
Closing notes Pt asleep, easily arousable. No s/s distress noted. Mancia catheter emptied 800ml blood tinged urine. IVF infusing R. AC 22 clear and patent. Call light within reach. Safsety maintained. Bed low, locked siderails up x3. To endorse to AM nurse.
[2019-09-15] MEDS: D5/0.45 NS 1,000 ML IV SCH (06:08)
[2019-09-15] MEDS: PANTOPRAZOLE SODIUM 40 MG TAB PO SCH (09:59)
[2019-09-15] MEDS: MEMANTINE HCL 5 MG TABLET PO SCH (09:59)
[2019-09-15] MEDS: METOPROLOL TARTRATE 25 MG TABLET PO SCH (10:00)
[2019-09-15] MEDS: MULTIVITAMINS TAB 1 TABLET PO SCH (10:00)
[2019-09-15] MEDS: CHOLECALCIFEROL (VITAMIN D3) 2,000 UNIT TABLET PO SCH (10:01)
[2019-09-15] MEDS: LISINOPRIL 5 MG TABLET PO SCH (10:03)
--- NOTE | 2019-09-15 13:06 | NUR ---
Discharge Planning: DCP arranged transportation with [facility] ([phone]) to [facility] ([phone]) Rm 24A. DCP took patient packet to nurse station, nurse aware.
--- NOTE | 2019-09-15 13:25 | NUR ---
Family notification: Patient's son George LEVIN is notified of the transfer.
--- NOTE | 2019-09-15 14:26 | NUR ---
GIVEN DISCHARGE REPORT TO COCO MURILLO RN AT 1420.
--- NOTE | 2019-09-15 15:25 | NUR ---
Discharge: Discharged to [facility] with [facility], sent with doherty catheter and belongings.
[2019-09-15 15:27] VITALS: BP_SYST 115
== END 2019-09-15 15:25 | DRG 871 ==
LOC: SED 12:20 → SMU 17:24 → STU 09-08 16:25 → SMU 09-14 13:13
PROVIDERS: ADMIT Internal Medicine; ATTEND Internal Medicine
DX: A41.9 Sepsis, unspecified organism (principal); E43 Unspecified severe protein-calorie malnutrition; N39.0 Urinary tract infection, site not specified; I50.32 Chronic diastolic (congestive) heart failure; I48.20 Chronic atrial fibrillation, unspecified; N40.1 Benign prostatic hyperplasia with lower urinary tract symptoms; R31.9 Hematuria, unspecified; F03.90 Unspecified dementia, unspecified severity, without behavioral disturbance, psychotic disturbance, mood disturbance, and anxiety; F32.9 Major depressive disorder, single episode, unspecified; E11.9 Type 2 diabetes mellitus without complications; I11.0 Hypertensive heart disease with heart failure; I25.10 Atherosclerotic heart disease of native coronary artery without angina pectoris; J44.9 Chronic obstructive pulmonary disease, unspecified; K21.9 Gastro-esophageal reflux disease without esophagitis; M41.9 Scoliosis, unspecified; R33.8 Other retention of urine; Z79.899 Other long term (current) drug therapy; I25.2 Old myocardial infarction; Z86.73 Personal history of transient ischemic attack (TIA), and cerebral infarction without residual deficits; Z87.442 Personal history of urinary calculi
CPT/HCPCS: 36415; 71045; 76770; 80048; 80053; 81000-TC; 82140-TC; 82150-TC; 82550-TC; 82962; 83605; 83690-TC; 83735-TC; 83880; 84100-TC; 84439; 84443-TC; 84484; 85025; 85610-TC; 85730-TC; 87040-TC; 87081; 87086; 93005; 96365; 99285; G0378; J0696; J1956; J3490; J7040

== ENCOUNTER 2019-12-14 18:50 | Inpatient (IN) | payer OTHER, MEDICAID, SELFPAY ==
[~2019-12-14] VITALS: Ht 157.5 cm; Wt 45.8 kg
[2019-12-14 18:54] VITALS: BP_SYST 136
[2019-12-14] MEDS ORDERED: NACL 0.9% 1,000 ML IV ONE (19:41)
[2019-12-14 20:06] LABS: CLARITY/URINE CLOUDY (CLEAR); COLOR,URINE YELLOW (YELLOW); GLUCOSE,URINE NEGATIVE (NEGATIVE); KETONES,URINE NEGATIVE (NEGATIVE); PH,URINE 7.5 (5.0-8.0); PROTEIN URINE 1+ (NEGATIVE)
[2019-12-14 20:07] LABS: BILIRUBIN,URINE NEGATIVE (NEGATIVE); BLOOD, URINE 3+ (NEGATIVE); LEUKOCYTE ESTERASE ,URINE 3+ (NEGATIVE); NITRITE, URINE NEGATIVE (NEGATIVE); UROBILINOGEN,URINE 0.2 (0.2-1.0)
[2019-12-14 20:09] LABS: WBC,URINE >100 /HPF (0-3)
[2019-12-14 20:10] LABS: BACTERIA,URINE MANY /HPF (None Seen)
[2019-12-14] MEDS ORDERED: NUT.237L70 PO (20:11)
[2019-12-14] MEDS ORDERED: PRO40 PO (20:11)
[2019-12-14] MEDS ORDERED: DOCU-144 PO (20:11)
[2019-12-14] MEDS ORDERED: MULT-1117 PO (20:11)
[2019-12-14] MEDS ORDERED: CHOL500037 PO (20:11)
[2019-12-14] MEDS ORDERED: LISI-209 PO (20:11)
[2019-12-14] MEDS ORDERED: REM15 PO (20:11)
[2019-12-14] MEDS ORDERED: METO25TA6 PO (20:11)
[2019-12-14] MEDS ORDERED: MEMA5TAB PO (20:11)
[2019-12-14] MEDS ORDERED: CYAN250014 PO (20:11)
[2019-12-14] MEDS ORDERED: TAMS-11 PO (20:11)
[2019-12-14] MEDS ORDERED: LIP40 PO (20:11)
[2019-12-14] MEDS ORDERED: FOLI-43 PO (20:11)
[2019-12-14 20:40] LABS: BASOPHILS % (AUTO) 0.3 % (0.0-2.0); EOSINOPHILS % (AUTO) 0.4 % (0.0-4.0); HEMATOCRIT 36.4 % (36-54); HEMOGLOBIN 11.6 g/dL (14.0-18.0); LYMPHOCYTES # (AUTO) 1.2 K/uL (1.0-5.5); LYMPHOCYTES % (AUTO) 11.6 % (20.5-51.5); MEAN CORPUSCULAR HEMOGLOBIN 26 pg (27-31); MEAN CORPUSCULAR HGB CONC 32 % (32-36); MEAN CORPUSCULAR VOLUME 83 fL (79.0-98.0); MONOCYTES # (AUTO) 0.9 K/uL (0.0-1.0); MONOCYTES % (AUTO) 9.3 % (1.7-9.3); NEUTROPHILS # (AUTO) 7.8 K/uL (1.8-7.7); NEUTROPHILS % (AUTO) 78.4 % (40.0-70.0); PLATELET COUNT (AUTO) 199 K/uL (130-430); RED BLOOD CELL COUNT(AUTO) 4.38 MIL/uL (4.2-6.2); RED CELL DISTRIBUTION WIDTH 18.4 % (9.0-15.0); WHITE BLOOD COUNT (AUTO) 9.9 K/uL (4.8-10.8)
[2019-12-14] MEDS ORDERED: cefTRIAXone 1 GM IVPB PREMIX 50 ML IV ONE (20:45)
[2019-12-14 20:57] LABS: CALCIUM 8.3 mg/dL (8.4-11.0); CHLORIDE 103 mmol/L (98-107); CREATININE 1.18 mg/dL (0.55-1.30); GLUCOSE 226 mg/dL (70-99); POTASSIUM 3.9 mmol/L (3.5-5.1); SODIUM SERUM 137 mmol/L (136-145); UREA NITROGEN, BLOOD 25 mg/dL (8-21)
[2019-12-14 21:04] LABS: ALANINE AMINOTRANSFERASE 18 U/L (12-78); ALBUMIN 2.1 g/dL (3.4-4.8); ASPARTATE AMINOTRANSFERASE 15 U/L (10-37); LIPASE 116 U/L (73-393); TOTAL BILIRUBIN 0.4 mg/dL (0.0-1.0)
[2019-12-14 21:07] LABS: ANION GAP < 3 (5-15)
[2019-12-14 21:20] LABS: PROTHROMBIN TIME 10.3 SECS (9.5-12.5)
[2019-12-15] MEDS ORDERED: ACETAMINOPHEN 325 MG TABLET PO PRN (01:00)
[2019-12-15 05:26] VITALS: BP_SYST 132
[2019-12-15] MEDS ORDERED: cefTRIAXone 1 GM in D5W 50 ML IV SCH (05:30)
[2019-12-15 08:00] VITALS: BP_SYST 136
[2019-12-15] MEDS ORDERED: METOPROLOL TARTRATE 25 MG TABLET PO SCH (09:00)
[2019-12-15] MEDS ORDERED: PANTOPRAZOLE SODIUM 40 MG TAB PO SCH (09:00)
[2019-12-15] MEDS ORDERED: LISINOPRIL 5 MG TABLET PO SCH (09:00)
[2019-12-15] MEDS ORDERED: MULTIVITAMINS TAB 1 TABLET PO SCH (09:00)
[2019-12-15] MEDS ORDERED: MEMANTINE HCL 5 MG TABLET PO SCH (09:00)
[2019-12-15] MEDS: RIVAROXABAN 15 MG TABLET PO SCH (09:00)
[2019-12-15] MEDS ORDERED: CHOLECALCIFEROL (VITAMIN D3) 2,000 UNIT TABLET PO SCH (09:00)
[2019-12-15] MEDS: FOLIC ACID 1 MG TABLET PO SCH (09:53)
[2019-12-15] MEDS: METOPROLOL TARTRATE 25 MG TABLET PO SCH ×2 (09:53→21:00)
[2019-12-15] MEDS: MEMANTINE HCL 5 MG TABLET PO SCH ×2 (09:54→21:07)
[2019-12-15] MEDS: LISINOPRIL 5 MG TABLET PO SCH (09:54)
[2019-12-15] MEDS: PANTOPRAZOLE SODIUM 40 MG TAB PO SCH (09:54)
[2019-12-15] MEDS: CYANOCOBALAMIN 1000 mCg TABLET PO SCH (09:54)
[2019-12-15] MEDS: MULTIVITAMINS TAB 1 TABLET PO SCH (09:54)
[2019-12-15] MEDS: CIPROFLOXACIN HCL 500 MG TABLET PO SCH ×2 (11:24→21:07)
[2019-12-15 12:00] VITALS: BP_SYST 118
[2019-12-15 16:00] VITALS: BP_SYST 102
[2019-12-15 20:00] VITALS: BP_SYST 108
[2019-12-15] MEDS ORDERED: MIRTAZAPINE 15 MG TABLET PO SCH (21:00)
[2019-12-15] MEDS ORDERED: ATORVASTATIN 20 MG TABLET PO SCH (21:00)
[2019-12-15] MEDS ORDERED: DOCUSATE SODIUM 100 MG CAPSULE PO SCH (21:00)
[2019-12-15] MEDS: ATORVASTATIN 20 MG TABLET PO SCH (21:06)
[2019-12-15] MEDS: cefTRIAXone 1 GM in D5W 50 ML IV SCH (21:06)
[2019-12-15] MEDS: DOCUSATE SODIUM 100 MG CAPSULE PO SCH (21:06)
[2019-12-15] MEDS: TAMSULOSIN HCL 0.4 MG CAP PO SCH (21:06)
[2019-12-15] MEDS: MIRTAZAPINE 15 MG TABLET PO SCH (21:07)
[2019-12-16 00:07] VITALS: BP_SYST 108
[2019-12-16 07:05] LABS: BASOPHILS % (AUTO) 0.3 % (0.0-2.0); EOSINOPHILS # (AUTO) 0.1 K/uL (0.0-0.4); EOSINOPHILS % (AUTO) 1.4 % (0.0-4.0); HEMATOCRIT 35.8 % (36-54); HEMOGLOBIN 11.7 g/dL (14.0-18.0); LYMPHOCYTES # (AUTO) 1.2 K/uL (1.0-5.5); LYMPHOCYTES % (AUTO) 16.6 % (20.5-51.5); MEAN CORPUSCULAR HEMOGLOBIN 26 pg (27-31); MEAN CORPUSCULAR HGB CONC 33 % (32-36); MONOCYTES # (AUTO) 0.6 K/uL (0.0-1.0); MONOCYTES % (AUTO) 8.9 % (1.7-9.3); NEUTROPHILS # (AUTO) 5.2 K/uL (1.8-7.7); NEUTROPHILS % (AUTO) 72.8 % (40.0-70.0); PLATELET COUNT (AUTO) 205 K/uL (130-430); RED BLOOD CELL COUNT(AUTO) 4.45 MIL/uL (4.2-6.2); WHITE BLOOD COUNT (AUTO) 7.1 K/uL (4.8-10.8)
[2019-12-16 07:30] LABS: ALANINE AMINOTRANSFERASE 15 U/L (12-78); ALBUMIN 1.9 g/dL (3.4-4.8); ANION GAP 6 (5-15); ASPARTATE AMINOTRANSFERASE 14 U/L (10-37); CALCIUM 8.2 mg/dL (8.4-11.0); CHLORIDE 104 mmol/L (98-107); CREATININE 0.83 mg/dL (0.55-1.30); GLUCOSE 128 mg/dL (70-99); POTASSIUM 3.8 mmol/L (3.5-5.1); SODIUM SERUM 139 mmol/L (136-145); TOTAL BILIRUBIN 0.3 mg/dL (0.0-1.0); UREA NITROGEN, BLOOD 26 mg/dL (8-21)
[2019-12-16 07:39] LABS: MEAN CORPUSCULAR VOLUME 81 fL (79.0-98.0)
[2019-12-16 08:00] VITALS: BP_SYST 125
[2019-12-16 08:58] LABS: INR 1.1 (0.80-1.20); PROTHROMBIN TIME 10.6 SECS (9.5-12.5)
[2019-12-16] MEDS: RIVAROXABAN 15 MG TABLET PO SCH (09:53)
[2019-12-16] MEDS: MEMANTINE HCL 5 MG TABLET PO SCH ×3 (09:53→21:58)
[2019-12-16] MEDS: CHOLECALCIFEROL (VITAMIN D3) 2,000 UNIT TABLET PO SCH (09:53)
[2019-12-16] MEDS: METOPROLOL TARTRATE 25 MG TABLET PO SCH ×3 (09:54→21:57)
[2019-12-16] MEDS: PANTOPRAZOLE SODIUM 40 MG TAB PO SCH (09:54)
[2019-12-16] MEDS: LISINOPRIL 5 MG TABLET PO SCH (09:54)
[2019-12-16] MEDS: FOLIC ACID 1 MG TABLET PO SCH (09:55)
[2019-12-16] MEDS: CYANOCOBALAMIN 1000 mCg TABLET PO SCH (09:55)
[2019-12-16] MEDS: MULTIVITAMINS TAB 1 TABLET PO SCH (09:55)
[2019-12-16 12:00] VITALS: BP_SYST 99
[2019-12-16 16:34] VITALS: BP_SYST 116
[2019-12-16 21:00] VITALS: BP_SYST 117
[2019-12-16] MEDS: TAMSULOSIN HCL 0.4 MG CAP PO SCH ×2 (21:00→21:59)
[2019-12-16] MEDS: DOCUSATE SODIUM 100 MG CAPSULE PO SCH ×2 (21:00→21:58)
[2019-12-16] MEDS: MIRTAZAPINE 15 MG TABLET PO SCH ×2 (21:00→21:58)
[2019-12-16] MEDS: ATORVASTATIN 20 MG TABLET PO SCH ×2 (21:00→21:56)
[2019-12-16] MEDS: MUPIROCIN 2% TOPICAL OINTMENT 22 GM NS SCH (21:55)
[2019-12-16] MEDS: cefTRIAXone 1 GM in D5W 50 ML IV SCH (22:00)
[2019-12-17 00:10] VITALS: BP_SYST 117
[2019-12-17 04:50] LABS: BASOPHILS % (AUTO) 0.4 % (0.0-2.0); EOSINOPHILS # (AUTO) 0.1 K/uL (0.0-0.4); EOSINOPHILS % (AUTO) 1.6 % (0.0-4.0); HEMATOCRIT 36.6 % (36-54); HEMOGLOBIN 11.7 g/dL (14.0-18.0); LYMPHOCYTES # (AUTO) 1.6 K/uL (1.0-5.5); LYMPHOCYTES % (AUTO) 22.2 % (20.5-51.5); MEAN CORPUSCULAR HEMOGLOBIN 26 pg (27-31); MEAN CORPUSCULAR HGB CONC 32 % (32-36); MEAN CORPUSCULAR VOLUME 82 fL (79.0-98.0); MONOCYTES # (AUTO) 0.8 K/uL (0.0-1.0); MONOCYTES % (AUTO) 10.4 % (1.7-9.3); NEUTROPHILS # (AUTO) 4.8 K/uL (1.8-7.7); NEUTROPHILS % (AUTO) 65.4 % (40.0-70.0); PLATELET COUNT (AUTO) 209 K/uL (130-430); RED BLOOD CELL COUNT(AUTO) 4.48 MIL/uL (4.2-6.2); RED CELL DISTRIBUTION WIDTH 18.2 % (9.0-15.0); WHITE BLOOD COUNT (AUTO) 7.3 K/uL (4.8-10.8)
[2019-12-17 05:04] LABS: ALANINE AMINOTRANSFERASE 17 U/L (12-78); ALBUMIN 2.1 g/dL (3.4-4.8); ANION GAP 1 (5-15); ASPARTATE AMINOTRANSFERASE 15 U/L (10-37); CALCIUM 8.4 mg/dL (8.4-11.0); CHLORIDE 104 mmol/L (98-107); CREATININE 0.95 mg/dL (0.55-1.30); GLUCOSE 120 mg/dL (70-99); POTASSIUM 4.1 mmol/L (3.5-5.1); SODIUM SERUM 137 mmol/L (136-145); TOTAL BILIRUBIN 0.3 mg/dL (0.0-1.0); UREA NITROGEN, BLOOD 24 mg/dL (8-21)
[2019-12-17 08:00] VITALS: BP_SYST 129
[2019-12-17] MEDS: RIVAROXABAN 15 MG TABLET PO SCH (08:45)
[2019-12-17] MEDS: MEMANTINE HCL 5 MG TABLET PO SCH ×2 (08:46→20:49)
[2019-12-17] MEDS: LISINOPRIL 5 MG TABLET PO SCH (08:46)
[2019-12-17] MEDS: CYANOCOBALAMIN 1000 mCg TABLET PO SCH (08:47)
[2019-12-17] MEDS: CHOLECALCIFEROL (VITAMIN D3) 2,000 UNIT TABLET PO SCH (08:47)
[2019-12-17] MEDS: PANTOPRAZOLE SODIUM 40 MG TAB PO SCH (08:47)
[2019-12-17] MEDS: MULTIVITAMINS TAB 1 TABLET PO SCH (08:47)
[2019-12-17] MEDS: FOLIC ACID 1 MG TABLET PO SCH (08:47)
[2019-12-17] MEDS: MUPIROCIN 2% TOPICAL OINTMENT 22 GM NS SCH ×2 (08:48→20:49)
[2019-12-17] MEDS: METOPROLOL TARTRATE 25 MG TABLET PO SCH ×2 (08:48→20:50)
[2019-12-17 12:34] VITALS: BP_SYST 130
[2019-12-17] MEDS ORDERED: ROCPM1 IV (13:45)
[2019-12-17] MEDS ORDERED: BACTROBAN TP (13:45)
[2019-12-17 16:10] VITALS: BP_SYST 126
[2019-12-17 20:45] VITALS: BP_SYST 140
[2019-12-17] MEDS: cefTRIAXone 1 GM in D5W 50 ML IV SCH (20:48)
[2019-12-17] MEDS: ATORVASTATIN 20 MG TABLET PO SCH (20:49)
[2019-12-17] MEDS: TAMSULOSIN HCL 0.4 MG CAP PO SCH (20:49)
[2019-12-17] MEDS: DOCUSATE SODIUM 100 MG CAPSULE PO SCH (20:49)
[2019-12-17] MEDS: MIRTAZAPINE 15 MG TABLET PO SCH (20:50)
[2019-12-18 00:03] VITALS: BP_SYST 140
[2019-12-18 08:00] VITALS: BP_SYST 122
[2019-12-18] MEDS: CHOLECALCIFEROL (VITAMIN D3) 2,000 UNIT TABLET PO SCH (09:16)
[2019-12-18] MEDS: METOPROLOL TARTRATE 25 MG TABLET PO SCH ×2 (09:16→20:23)
[2019-12-18] MEDS: FOLIC ACID 1 MG TABLET PO SCH (09:17)
[2019-12-18] MEDS: MULTIVITAMINS TAB 1 TABLET PO SCH (09:17)
[2019-12-18] MEDS: RIVAROXABAN 15 MG TABLET PO SCH (09:17)
[2019-12-18] MEDS: MEMANTINE HCL 5 MG TABLET PO SCH ×2 (09:18→20:24)
[2019-12-18] MEDS: LISINOPRIL 5 MG TABLET PO SCH (09:18)
[2019-12-18] MEDS: PANTOPRAZOLE SODIUM 40 MG TAB PO SCH (09:18)
[2019-12-18] MEDS: CYANOCOBALAMIN 1000 mCg TABLET PO SCH (09:18)
[2019-12-18] MEDS: MUPIROCIN 2% TOPICAL OINTMENT 22 GM NS SCH ×2 (09:21→20:25)
[2019-12-18 12:05] VITALS: BP_SYST 96
[2019-12-18 16:32] VITALS: BP_SYST 129
[2019-12-18 20:00] VITALS: BP_SYST 102
[2019-12-18] MEDS: DOCUSATE SODIUM 100 MG CAPSULE PO SCH (20:21)
[2019-12-18] MEDS: ATORVASTATIN 20 MG TABLET PO SCH (20:22)
[2019-12-18] MEDS: MIRTAZAPINE 15 MG TABLET PO SCH (20:23)
[2019-12-18] MEDS: TAMSULOSIN HCL 0.4 MG CAP PO SCH (20:23)
[2019-12-18] MEDS: cefTRIAXone 1 GM in D5W 50 ML IV SCH (20:24)
[2019-12-19 00:44] VITALS: BP_SYST 118
[2019-12-19 08:00] VITALS: BP_SYST 169
[2019-12-19] MEDS: RIVAROXABAN 15 MG TABLET PO SCH (09:44)
[2019-12-19] MEDS: MEMANTINE HCL 5 MG TABLET PO SCH ×2 (09:45→21:11)
[2019-12-19] MEDS: METOPROLOL TARTRATE 25 MG TABLET PO SCH ×2 (09:45→21:11)
[2019-12-19] MEDS: CYANOCOBALAMIN 1000 mCg TABLET PO SCH (09:46)
[2019-12-19] MEDS: FOLIC ACID 1 MG TABLET PO SCH (09:46)
[2019-12-19] MEDS: PANTOPRAZOLE SODIUM 40 MG TAB PO SCH (09:47)
[2019-12-19] MEDS: MULTIVITAMINS TAB 1 TABLET PO SCH (09:47)
[2019-12-19] MEDS: CHOLECALCIFEROL (VITAMIN D3) 2,000 UNIT TABLET PO SCH (09:47)
[2019-12-19] MEDS: MUPIROCIN 2% TOPICAL OINTMENT 22 GM NS SCH ×2 (09:48→21:12)
[2019-12-19] MEDS: LISINOPRIL 5 MG TABLET PO SCH (09:48)
[2019-12-19 12:00] VITALS: BP_SYST 107
[2019-12-19 16:22] VITALS: BP_SYST 110
[2019-12-19 20:00] VITALS: BP_SYST 130
[2019-12-19] MEDS: TAMSULOSIN HCL 0.4 MG CAP PO SCH (21:10)
[2019-12-19] MEDS: ATORVASTATIN 20 MG TABLET PO SCH (21:11)
[2019-12-19] MEDS: MIRTAZAPINE 15 MG TABLET PO SCH (21:12)
[2019-12-19] MEDS: DOCUSATE SODIUM 100 MG CAPSULE PO SCH (21:12)
[2019-12-19] MEDS: cefTRIAXone 1 GM in D5W 50 ML IV SCH (21:18)
[2019-12-20 00:29] VITALS: BP_SYST 97
[2019-12-20] MEDS ORDERED: MEROPENEM 500 MG in NS 50 ML IV SCH (06:00)
[2019-12-20] MEDS ORDERED: MEROPENEM 1 GM VIAL IV ONE (07:08)
[2019-12-20] MEDS: MEROPENEM 1 GM in NS 100 ML IV SCH ×2 (07:19→17:26)
[2019-12-20] MEDS: MUPIROCIN 2% TOPICAL OINTMENT 22 GM NS SCH ×2 (08:45→20:35)
[2019-12-20] MEDS: MULTIVITAMINS TAB 1 TABLET PO SCH (08:46)
[2019-12-20] MEDS: CHOLECALCIFEROL (VITAMIN D3) 2,000 UNIT TABLET PO SCH (08:46)
[2019-12-20] MEDS: PANTOPRAZOLE SODIUM 40 MG TAB PO SCH (08:46)
[2019-12-20] MEDS: FOLIC ACID 1 MG TABLET PO SCH (08:46)
[2019-12-20] MEDS: LISINOPRIL 5 MG TABLET PO SCH (08:47)
[2019-12-20] MEDS: METOPROLOL TARTRATE 25 MG TABLET PO SCH ×2 (08:47→20:36)
[2019-12-20] MEDS: CYANOCOBALAMIN 1000 mCg TABLET PO SCH (08:47)
[2019-12-20] MEDS: RIVAROXABAN 15 MG TABLET PO SCH (08:48)
[2019-12-20] MEDS: MEMANTINE HCL 5 MG TABLET PO SCH ×2 (08:49→20:36)
[2019-12-20 08:52] VITALS: BP_SYST 142
[2019-12-20 12:00] VITALS: BP_SYST 132
[2019-12-20 16:30] VITALS: BP_SYST 131
[2019-12-20 20:00] VITALS: BP_SYST 108
[2019-12-20] MEDS: MIRTAZAPINE 15 MG TABLET PO SCH (20:36)
[2019-12-20] MEDS: DOCUSATE SODIUM 100 MG CAPSULE PO SCH (20:36)
[2019-12-20] MEDS: ATORVASTATIN 20 MG TABLET PO SCH (20:36)
[2019-12-20] MEDS: TAMSULOSIN HCL 0.4 MG CAP PO SCH (20:36)
[2019-12-21 00:16] VITALS: BP_SYST 111
[2019-12-21] MEDS: MEROPENEM 1 GM in NS 100 ML IV SCH ×2 (05:08→17:55)
[2019-12-21 08:00] VITALS: BP_SYST 120
[2019-12-21] MEDS: MUPIROCIN 2% TOPICAL OINTMENT 22 GM NS SCH ×2 (09:00→09:56)
[2019-12-21] MEDS: PANTOPRAZOLE SODIUM 40 MG TAB PO SCH (09:57)
[2019-12-21] MEDS: CYANOCOBALAMIN 1000 mCg TABLET PO SCH (09:57)
[2019-12-21] MEDS: CHOLECALCIFEROL (VITAMIN D3) 2,000 UNIT TABLET PO SCH (09:57)
[2019-12-21] MEDS: FOLIC ACID 1 MG TABLET PO SCH (09:57)
[2019-12-21] MEDS: LISINOPRIL 5 MG TABLET PO SCH (09:57)
[2019-12-21] MEDS: MULTIVITAMINS TAB 1 TABLET PO SCH (09:57)
[2019-12-21] MEDS: RIVAROXABAN 15 MG TABLET PO SCH (09:58)
[2019-12-21] MEDS: METOPROLOL TARTRATE 25 MG TABLET PO SCH ×2 (09:59→23:39)
[2019-12-21] MEDS: MEMANTINE HCL 5 MG TABLET PO SCH ×2 (09:59→23:37)
[2019-12-21 12:37] VITALS: BP_SYST 94
[2019-12-21 16:34] VITALS: BP_SYST 98
[2019-12-21 19:45] VITALS: BP_SYST 115
[2019-12-21 20:00] VITALS: BP_SYST 115
[2019-12-21] MEDS: DOCUSATE SODIUM 100 MG CAPSULE PO SCH (23:36)
[2019-12-21] MEDS: TAMSULOSIN HCL 0.4 MG CAP PO SCH (23:36)
[2019-12-21] MEDS: MIRTAZAPINE 15 MG TABLET PO SCH (23:37)
[2019-12-21] MEDS: ATORVASTATIN 20 MG TABLET PO SCH (23:39)
[2019-12-22 01:03] VITALS: BP_SYST 129
[2019-12-22] MEDS: MEROPENEM 1 GM in NS 100 ML IV SCH ×3 (05:47→17:30)
[2019-12-22 08:00] VITALS: BP_SYST 149
[2019-12-22] MEDS: MEMANTINE HCL 5 MG TABLET PO SCH (08:55)
[2019-12-22] MEDS: CYANOCOBALAMIN 1000 mCg TABLET PO SCH (08:55)
[2019-12-22] MEDS: RIVAROXABAN 15 MG TABLET PO SCH (08:56)
[2019-12-22] MEDS: CHOLECALCIFEROL (VITAMIN D3) 2,000 UNIT TABLET PO SCH (08:56)
[2019-12-22] MEDS: METOPROLOL TARTRATE 25 MG TABLET PO SCH (08:56)
[2019-12-22] MEDS: FOLIC ACID 1 MG TABLET PO SCH (08:59)
[2019-12-22] MEDS: LISINOPRIL 5 MG TABLET PO SCH (08:59)
[2019-12-22] MEDS: MULTIVITAMINS TAB 1 TABLET PO SCH (08:59)
[2019-12-22] MEDS: PANTOPRAZOLE SODIUM 40 MG TAB PO SCH (09:00)
[2019-12-22 12:11] VITALS: BP_SYST 114
[2019-12-22 16:30] VITALS: BP_SYST 117
[2019-12-22 18:31] VITALS: BP_SYST 115
== END 2019-12-22 20:55 | DRG 871 ==
LOC: SED 18:50 → EEVIPCON 22:52 → SIC 22:52 → STU 12-15 01:12
PROVIDERS: ADMIT Internal Medicine Infectious Disease; ATTEND Internal Medicine Infectious Disease
DX: A41.9 Sepsis, unspecified organism (principal); E43 Unspecified severe protein-calorie malnutrition; J18.9 Pneumonia, unspecified organism; I48.20 Chronic atrial fibrillation, unspecified; J44.0 Chronic obstructive pulmonary disease with (acute) lower respiratory infection; Z68.1 Body mass index [BMI] 19.9 or less, adult; N30.91 Cystitis, unspecified with hematuria; E11.9 Type 2 diabetes mellitus without complications; F03.90 Unspecified dementia, unspecified severity, without behavioral disturbance, psychotic disturbance, mood disturbance, and anxiety; N40.0 Benign prostatic hyperplasia without lower urinary tract symptoms; I50.9 Heart failure, unspecified; I25.10 Atherosclerotic heart disease of native coronary artery without angina pectoris; I11.0 Hypertensive heart disease with heart failure; R62.7 Adult failure to thrive; K21.9 Gastro-esophageal reflux disease without esophagitis; F32.9 Major depressive disorder, single episode, unspecified; B96.89 Other specified bacterial agents as the cause of diseases classified elsewhere; Z20.828 Contact with and (suspected) exposure to other viral communicable diseases; E78.5 Hyperlipidemia, unspecified; D64.9 Anemia, unspecified; Z87.442 Personal history of urinary calculi; Z86.73 Personal history of transient ischemic attack (TIA), and cerebral infarction without residual deficits; I25.2 Old myocardial infarction; Z95.5 Presence of coronary angioplasty implant and graft; Z87.440 Personal history of urinary (tract) infections; Z79.01 Long term (current) use of anticoagulants; Z79.899 Other long term (current) drug therapy; Z74.01 Bed confinement status
CPT/HCPCS: 36415; 71045; 76770; 80053; 81000-TC; 82550-TC; 83605; 83690-TC; 83880; 84484; 85025; 85610-TC; 85730-TC; 87040-TC; 87081; 87086; 87186-TC; 93005; 96361; 96365; 99285; G0378; J0696; J2185; J7050; J7060; U0003-CS